=== PATIENT | female | born 1980 | race Caucasian/White ===

== ENCOUNTER → 2020-06-19 | Outpatient (CLI) | payer OTHER | END | disposition home or self-care (01) | LOC: STAR 09:43 | PROVIDERS: ATTEND Obstetrics & Gynecology | DX: Z01.812 Encounter for preprocedural laboratory examination (principal); Z20.828 Contact with and (suspected) exposure to other viral communicable diseases | CPT/HCPCS: 36415; 87635 ==

== ENCOUNTER 2020-06-26 09:35 | Inpatient (IN) | payer OTHER ==
[~2020-06-26] VITALS: Ht 160 cm; Wt 81.8 kg
[2020-07-08] MEDS: LACTATED RINGERS 1,000 ML IV SCH (13:08)
[2020-07-08] MEDS ORDERED: LIDOCAINE 1%, 20ML ONE (13:17)
[2020-07-08] MEDS ORDERED: MISOPROSTOL 200 MCG TABLET ONE (13:17)
[2020-07-08] MEDS ORDERED: NEWBORN KIT ONE (13:17)
[2020-07-08] MEDS ORDERED: OXYTOCIN 30U/ 0.9% NaCL 500ML 500 ML IV ONE (13:20)
[2020-07-08] MEDS ORDERED: OXYTOCIN 30U/ 0.9% NaCL 500ML 500 ML IV PRN (13:20)
[2020-07-08] MEDS ORDERED: D5%-LACTATED RINGERS 1,000 ML IV SCH (13:20)
[2020-07-08] MEDS ORDERED: PREN1TAB60 PO (13:26)
[2020-07-08] MEDS ORDERED: MISOPROSTOL 25 MCG TABLET ONE ×2 (13:27→21:42)
[2020-07-08] MEDS: MISOPROSTOL 25 MCG TABLET VG PRN ×2 (13:29→21:45)
[2020-07-08 13:30] VITALS: BP 114/71
[2020-07-08] MEDS ORDERED: FENTANYL PF 100 MCG/2ML IVPush PRN (13:30)
[2020-07-08] MEDS ORDERED: FENTANYL PF 100 MCG/2ML IV PRN (13:30)
[2020-07-08] MEDS ORDERED: TERBUTALINE 1 MG/ML, 1ML IVPush PRN (13:30)
[2020-07-08] MEDS ORDERED: SODIUM CHLORIDE FLUSH 10ML SYR IVF PRN (13:30)
[2020-07-08] MEDS ORDERED: ONDANSETRON 2MG/ML, 2ML IVPush PRN (13:30)
[2020-07-08] MEDS ORDERED: ALUMINUM/MAG/SIMETHICONE 30 ML UDC PO PRN (13:30)
[2020-07-08] MEDS ORDERED: TERBUTALINE 1 MG/ML, 1ML SQ PRN (13:30)
[2020-07-08 13:48] LABS: MEAN CORPUSCULAR HEMOGLOBIN 28.5 pg (27.0-34.8); MEAN CORPUSCULAR HGB CONC 32.7 g/dL (32.4-35.8); MEAN PLATELET VOLUME 7.8 fL (7.4-10.4); PLATELET COUNT 208 x10^3/uL (130-400); RED BLOOD COUNT 4.68 x10^6/uL (3.82-5.3); RED CELL DISTRIBUTION WIDTH 15.9 % (9.6-15.2)
[2020-07-08 15:06] LABS: MD YES
[2020-07-08 17:25] LABS: <PLATELET ESTIMATE> ADEQUATE; <PLT MORPHOLOGY> NORMAL PLT MORPH; <RBC MORPHOLOGY> NORMAL; BAND#(MANUAL) 0.42 x10^3/uL; BANDS%(MANUAL) 3 % (0-7); LYMPHS% (MANUAL) 20 % (22-44); MONOS% (MANUAL) 5 % (2-9); MYELOCYTES# (MANUAL) 0.14 x10^3/uL (0-0); MYELOCYTES% (MANUAL) 1 % (0-0); REACTIVE LYMPHS % (MANUAL) 5 % (0-0); SEG#(MANUAL) 9.24 x10^3/uL (1.8-6.8); SEGS% (MANUAL) 66 % (42-75)
[2020-07-09] MEDS ORDERED: FENTANYL PF 100 MCG/2ML ONE ×2 (01:08→02:24)
[2020-07-09] MEDS ORDERED: FENTANYL/BUPIV./NS/PF 250 ML EPIDCONT ONE (01:23)
[2020-07-09] MEDS ORDERED: BUPIVACAINE 0.25% ONE ×2 (01:23→02:30)
[2020-07-09] MEDS: LACTATED RINGERS 1,000 ML IV SCH (01:54)
[2020-07-09] MEDS ORDERED: ROPIvacaine/PF 0.2%, 20 ML ONE (02:02)
[2020-07-09] MEDS ORDERED: FENTANYL/BUPIV./NS/PF 250 ML EPIDCONT SCH (03:34)
[2020-07-09] MEDS ORDERED: LACTATED RINGERS 1,000 ML IV SCH (03:34)
[2020-07-09] MEDS ORDERED: NALOXONE 0.4 MG/ML, 1ML IVPush PRN (04:00)
[2020-07-09] MEDS ORDERED: DIPHENHYDRAMINE 50 MG/ML, 1ML IVPush PRN (04:00)
[2020-07-09] MEDS ORDERED: ONDANSETRON 2MG/ML, 2ML IVPush PRN (04:00)
[2020-07-09] MEDS ORDERED: EPHEDRINE 50 MG/ML, 1ML IVPush PRN (04:00)
[2020-07-09] MEDS ORDERED: LACTATED RINGERS 1,000 ML IVBOLUS PRN (04:00)
[2020-07-09] MEDS ORDERED: OXYTOCIN 30U/ 0.9% NaCL 500ML 500 ML ONE (04:16)
[2020-07-09 07:35] VITALS: BP 101/63
[2020-07-09] MEDS: OXYTOCIN 30U/ 0.9% NaCL 500ML 500 ML IV SCH ×2 (08:05→18:05)
[2020-07-09] MEDS: PRENATAL VIT/IRON/FA 1 EACH TABLET PO SCH ×3 (08:24→09:55)
[2020-07-09] MEDS ORDERED: OXYcodone/APAP 5/325MG TABLET PO PRN ×2 (08:30)
[2020-07-09] MEDS ORDERED: ACETAMINOPHEN 325 MG TABLET PO PRN (08:30)
[2020-07-09] MEDS ORDERED: CARBOPROST TROMETHAMINE 250 MCG/ML, 1ML IM PRN (08:30)
[2020-07-09] MEDS ORDERED: SIMETHICONE 80 MG CHEW TAB PO PRN (08:30)
[2020-07-09] MEDS ORDERED: METHYLERGONOVINE 0.2 MG/ML IM PRN (08:30)
[2020-07-09] MEDS ORDERED: MISOPROSTOL 200 MCG TABLET PR PRN (08:30)
[2020-07-09] MEDS: IBUPROFEN 600 MG TABLET PO PRN ×3 (09:52→23:24)
[2020-07-09] MEDS: DOCUSATE 100 MG CAPSULE PO PRN ×2 (09:56→23:25)
[2020-07-09 11:46] VITALS: BP 116/76
[2020-07-09 12:29] LABS: MEAN CORPUSCULAR HEMOGLOBIN 28.5 pg (27.0-34.8); MEAN CORPUSCULAR HGB CONC 32.5 g/dL (32.4-35.8); MEAN CORPUSCULAR VOLUME 87.8 fL (80-100); MEAN PLATELET VOLUME 7.7 fL (7.4-10.4); PLATELET COUNT 176 x10^3/uL (130-400); RED BLOOD COUNT 4.09 x10^6/uL (3.82-5.3); RED CELL DISTRIBUTION WIDTH 15.7 % (9.6-15.2)
[2020-07-09 13:09] LABS: BASOPHILS # (AUTO) 0.01 x10^3/uL (0-0.1); BASOPHILS % (AUTO) 0 % (0-1); EOSINOPHILS # (AUTO) 0.03 x10^3/uL (0-0.4); EOSINOPHILS % (AUTO) 0 % (1-7); LYMPHOCYTES # (AUTO) 2.77 x10^3/uL (1-3.4); LYMPHOCYTES % (AUTO) 14 % (22-44); MD SCAN; MONOCYTES # (AUTO) 0.46 x10^3/uL (0.2-0.8); MONOCYTES % (AUTO) 2 % (2-9); NEUTROPHILS # (AUTO) 17.25 x10^3/uL (1.8-6.8); NEUTROPHILS % (AUTO) 84 % (42-75)
[2020-07-09 16:15] VITALS: BP 108/70
[2020-07-09 20:45] VITALS: BP 106/70
[2020-07-10 00:45] VITALS: BP 114/76
[2020-07-10] MEDS: OXYTOCIN 30U/ 0.9% NaCL 500ML 500 ML IV SCH (04:05)
[2020-07-10] MEDS: DOCUSATE 100 MG CAPSULE PO PRN (07:55)
[2020-07-10] MEDS: PRENATAL VIT/IRON/FA 1 EACH TABLET PO SCH (07:56)
[2020-07-10] MEDS ORDERED: IBUP-1222 PO (09:35)
[2020-07-10 10:30] VITALS: BP 111/73
== END 2020-07-10 12:20 | disposition home or self-care (01) | DRG 807 ==
LOC: EDIP 07-08 13:02 → LDIP 07-08 13:08 → 2NW 07-09 07:22
PROVIDERS: ADMIT Obstetrics & Gynecology Maternal & Fetal Medicine; ATTEND Obstetrics & Gynecology Maternal & Fetal Medicine
PROC: 10E0XZZ Delivery of Products of Conception, External Approach (ICD-10-PCS; principal; 2020-07-09)
PROC: 0KQM0ZZ Repair Perineum Muscle, Open Approach (ICD-10-PCS; 2020-07-09)
PROC: 3E0R3BZ Introduction of Anesthetic Agent into Spinal Canal, Percutaneous Approach (ICD-10-PCS; 2020-07-09)
PROC: 00HU33Z Insertion of Infusion Device into Spinal Canal, Percutaneous Approach (ICD-10-PCS; 2020-07-09)
DX: O48.0 Post-term pregnancy (principal); Z37.0 Single live birth; Z3A.40 40 weeks gestation of pregnancy; O70.1 Second degree perineal laceration during delivery
CPT/HCPCS: 36415; J3490; 85025; 86592; 86850; 86900; G0378; J2795; J3010; J2590; J7120